=== PATIENT | male | born 1970 | race African-American/Black ===

== ENCOUNTER 2017-01-05 19:50 | Inpatient (IN) | payer OTHER ==
[2017-01-05 20:32] VITALS: BMI 20.5
--- NOTE | 2017-01-05 20:43 | HP ---
CIWA Score - CIWA Score Nausea/Vomitin-Mild Nausea/No Vomiting Muscle Tremors: 4-Moderate,w/Arms Extend Anxiety: 4-Mod. Anxious/Guarded Agitation: 4-Moderately Restless Paroxysmal Sweats: 3 Orientation: 0-Oriented Tacttile Disturbances: 3-Moderate Itch/Numb/Burn Auditory Disturbances: 0-None Visual Disturbances: 0-None Headache: 3-Moderate CIWA-Ar Total Score: 22 Admission ROS BHS - HPI Chief Complaint: WITHDRAWAL SX'S. SEEKING SETOX TXMENT Allergies/Adverse Reactions: Allergies Allergy/AdvReac Type Severity Reaction Status Date / Time No Known Allergies Allergy Verified 01/05/17 20:36 History of Present Illness: 46 Y.O. MALE WITH ALCOHOLISM ADMITTED TO DETOX. U/A POSITVE FOR OXY. CLIENT ADAMANTLY DENIES USE. STATES LAST DETOX YEARS AGO. AGREES TO LOS OF 5 DAYS. Exam Limitations: Other (R EYE BLINDNESS. RETINAL BLASTOMA) - Ebola screening Have you traveled outside of the country in the last 21 days: No (N) Have you had contact with anyone from an Ebola affected area: No Have you been sick,other than usual withdrawal symptoms: No Do you have a fever: No - Review of Systems Constitutional: Chills, Malaise, Night Sweats, Changes in sleep EENT: reports: Dental Problems (MISSING TEETH), Other (R EYE BLINDNESS) Respiratory: reports: No Symptoms reported Cardiac: reports: No Symptoms Reported GI: reports: Nausea : reports: No Symptoms Reported Musculoskeletal: reports: Back Pain Integumentary: reports: Other (R LOWER CHIN SKIN ABCESS X 3 DAYS) Neuro: reports: No Symptoms reported Endocrine: reports: No Symptoms Reported Hematology: reports: No Symptoms Reported Psychiatric: reports: Anxious Other Systems: Reviewed and Negative Patient History - Patient Medical History Hx Anemia: No Hx Asthma: No Hx Chronic Obstructive Pulmonary Disease (COPD): No Hx Cancer: Yes (H/O RETINAL BLASTOMA) Hx Cardiac Disorders: No Hx Congestive Heart Failure: No Hx Hypertension: No Hx Hypercholesterolemia: No Hx Pacemaker: No HX Cerebrovascular Accident: No Hx Seizures: No Hx Dementia: No Hx Diabetes: No Hx Gastrointestinal Disorders: Yes (GERD) Hx Liver Disease: No Hx Genitourinary Disorders: No Hx Sexually Transmitted Disorders: No Hx Renal Disease (ESRD): No Hx Thyroid Disease: No Hx Human Immunodeficiency Virus (HIV): No Hx Hepatitis C: No Hx Depression: Yes (FEELS DEPRESSED. DENIES SI/HI) Hx Suicide Attempt: No Hx Bipolar Disorder: No Hx Schizophrenia: No Other Medical History: DENIES - Patient Surgical History Past Surgical History: Yes Hx Appendectomy: Yes Anesthesia Reaction: No - PPD History Previous Implant?: Yes Documented Results: Negative w/o proof Implanted On Prior R Admission?: No PPD to be Administered?: Yes - Smoking Cessation Smoking history: Current every day smoker Have you smoked in the past 12 months: Yes Aproximately how many cigarettes per day: 10 Cigars Per Day: 4 Hx Chewing Tobacco Use: No Initiated information on smoking cessation: Yes 'Breaking Loose' booklet given: 01/05/17 - Substance & Tx. History Hx Alcohol Use: Yes Hx Substance Use: Yes Substance Use Type: Alcohol Hx Substance Use Treatment: Yes (DOES NOT RECALL) - Substances Abused VODKA Route: Oral Frequency: Daily Amount used: 1 PINT Age of first use: 17 Date of Last Use: 01/05/17 Family Disease History - Family Disease History Family Disease History: Heart Disease: Father ( ALCOHOLISM, [place]), Other: Father, Mother ( ALCOHOLISM, SEIZURES) Admission Physical Exam S - Vital Signs Vital Signs: Vital Signs - 24 hr 01/05/17 20:30 Temperature 98.6 F Pulse Rate 96 H Respiratory 20 Rate Blood Pressure 128/66 - Physical General Appearance: Yes: Anxious HEENTM: Yes: EOMI (ONLY LEFT EYE), Normocephalic, GARRY (ONLY LEFT EYE), Pharynx Normal, Other (R EYE BLINDNESS POOR DENTITION) Respiratory: Yes: Chest Non-Tender, Lungs Clear, Normal Breath Sounds, No Respiratory Distress, No Accessory Muscle Use Neck: Yes: No masses,lesions,Nodules, Supple, Trachea in good position Breast: Yes: Breast Exam Deferred Cardiology: Yes: Regular Rhythm, Regular Rate, S1, S2 Abdominal: Yes: Normal Bowel Sounds, Non Tender, Soft Genitourinary: Yes: Within Normal Limits Back: Yes: Normal Inspection Musculoskeletal: Yes: full range of Motion, Gait Steady Extremities: Yes: Normal Capillary Refill, Normal Range of Motion, Non-Tender, Tremors Neurological: Yes: regulatory affairs intern II-XII NML intact, Fully Oriented, Alert, Motor Strength 5/5 Integumentary: Yes: Warm, Other (SEVERE FACIAL ACNE WITH SCAR TISSUE R CHIN CUTANEOUS SKIN ABCESS NOTED RED SWOLLEN TENDER/ FIRM TO TOUCH) Lymphatic: Yes: Within Normal Limits - Diagnostic (1) Alcohol dependence with uncomplicated withdrawal Current Visit: Yes Status: Chronic (2) Nicotine dependence Current Visit: Yes Status: Chronic Qualifiers: Nicotine product type: cigarettes Substance use status: uncomplicated Qualified Code(s): F17.210 - Nicotine dependence, cigarettes, uncomplicated (3) Cutaneous abscess of face Current Visit: Yes Status: Acute (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
[2017-01-05] MEDS ORDERED: IBUPROFEN 400 MG TABLET (FP) PO PRN (21:03)
[2017-01-05] MEDS ORDERED: MAGNESIUM HYDROX 2400MG/30ML ORAL SUSPENSION 30 ML CUP PO PRN (21:03)
[2017-01-05] MEDS ORDERED: MENTHOL/PHENOL 1 EACH UD MM PRN (21:03)
[2017-01-05] MEDS ORDERED: guaiFENesin/D-METHORPHAN HB 10 ML UNIT-DOSE CUPS PO PRN (21:03)
[2017-01-05] MEDS ORDERED: P-EPHED 60MG/TRIPROLIDI 2.5MG TABLET PO PRN (21:03)
[2017-01-05] MEDS ORDERED: chlordiazePOXIDE HCL 25 MG CAPSULE PO PRN (21:03)
[2017-01-05] MEDS ORDERED: NICOTINE POLACRILEX 2 MG GUM BC PRN (21:03)
[2017-01-05] MEDS ORDERED: MAG HYDROX/AL HYDROX/SIMETH 30 ML UNIT-DOSE CUP PO PRN (21:03)
[2017-01-05] MEDS ORDERED: LOPERAMIDE HCL 2 MG CAPSULE PO PRN (21:03)
[2017-01-05] MEDS ORDERED: MAGNESIUM CITRATE 300 ML BOTTLE PO PRN (21:03)
[2017-01-05] MEDS ORDERED: hydrOXYzine PAMOATE 50 MG CAPSULE (FP) PO PRN (21:03)
[2017-01-05] MEDS: diphenhydrAMINE HCL 50 MG CAPSULE PO PRN (22:53)
[2017-01-05] MEDS: chlordiazePOXIDE HCL 25 MG CAPSULE PO SCH (22:53)
[2017-01-05] MEDS: NICOTINE 14 MG/24 HOURS TOPICAL PATCH TD SCH (22:56)
[2017-01-05] MEDS: THIAMINE HCL 100 MG TABLET (FP) PO SCH (22:57)
[2017-01-06] MEDS: CEPHALEXIN MONOHYDRATE 500 MG CAPSULE (UD) PO SCH ×5 (00:59→22:21)
[2017-01-06] MEDS: chlordiazePOXIDE HCL 25 MG CAPSULE PO SCH ×4 (05:47→22:21)
[2017-01-06] MEDS: PRENATAL VITAMINS W/ FOLIC ACID TABLET (FP) PO SCH (10:11)
[2017-01-06] MEDS: BACITRACIN 0.9 GM PACKET TP SCH ×4 (10:11→22:21)
[2017-01-06] MEDS: NICOTINE 14 MG/24 HOURS TOPICAL PATCH TD SCH (10:12)
--- NOTE | 2017-01-06 10:37 | PN ---
S CIWA - CIWA Score Nausea/Vomitin-Mild Nausea/No Vomiting Muscle Tremors: 4-Moderate,w/Arms Extend Anxiety: 4-Mod. Anxious/Guarded Agitation: 4-Moderately Restless Paroxysmal Sweats: 3 Orientation: 0-Oriented Tacttile Disturbances: 0-None Auditory Disturbances: 0-None Visual Disturbances: 0-None Headache: 0-None Present CIWA-Ar Total Score: 16 BHS Progress Note (SOAP) Subjective: Anxiety,tremors,sweating,interrupted sleep,restless Objective: 01/06/17 10:35 Vital Signs - 8 hr 01/06/17 01/06/17 05:55 09:47 Temperature 98.7 F 98.7 F Pulse Rate 82 89 Respiratory 16 18 Rate Blood Pressure 124/86 118/83 Assessment: 01/06/17 10:36 Withdrawal sx. Plan: Continue detox
[2017-01-06 10:42] LABS: MCH 35.9 pg (25.7-33.7); MCHC 34.1 g/dl (32.0-35.9); MEAN CELL VOLUME 105.3 fl (80-96); MEAN PLT VOLUME 8.9 fl (7.5-11.1); PLATELET COUNT 244 K/MM3 (134-434); RDW 15.8 % (11.9-15.9); WHITE BLOOD COUNT 8.3 K/mm3 (4.0-10.0)
[2017-01-06 10:53] LABS: ALK PHOS 122 U/L (45-117); ANION GAP 9 (8-16); BILIRUBIN,TOTAL 0.2 mg/dL (0.2-1.0); CO2 29 mmol/L (21-32); CREATININE 0.7 mg/dL (0.7-1.3); GLUCOSE,RANDOM 91 mg/dL (74-106); SGOT/AST 14 U/L (15-37); SGPT/ALT 28 U/L (12-78); TOT PROT 5.6 g/dl (6.4-8.2)
[2017-01-06 11:04] LABS: HIV 1 & 2 AB NEGATIVE; HIV 1 AGp24 NEGATIVE
--- NOTE | 2017-01-06 11:06 | EKG ---
Test Reason : Blood Pressure : / mmHG Vent. Rate : 085 BPM Atrial Rate : 085 BPM P-R Int : 136 ms QRS Dur : 082 ms QT Int : 376 ms P-R-T Axes : 072 068 065 degrees QTc Int : 447 ms NORMAL SINUS RHYTHM NORMAL ECG NO PREVIOUS ECGS AVAILABLE Confirmed by AMY BRYAN MD ([id number]) on 01/06/2017 11:06:30 AM Referred By: Confirmed By:AMY BRYAN MD
--- NOTE | 2017-01-06 11:23 | CONSULT ---
[facility] Psychiatric Consult - Data Date of interview: 01/06/17 Admission source: [facility] Identifying data: First admission to [facility] for this 46 y/o AA male seeking detox treatment on 3 for alcohol dependence (Utox is also + for oxycodone) .Patient is singe without children,homeless,unemployed and supported on Public Assistance. Substance Abuse History: - Smoking Cessation. Smoking history: Current every day smoker. Have you smoked in the past 12 months: Yes. Aproximately how many cigarettes per day: 10. Cigars Per Day: 4. Hx Chewing Tobacco Use: No. Initiated information on smoking cessation: Yes. 'Breaking Loose' booklet given : 01/05/17. - Substance & Tx. History. Hx Alcohol Use: Yes. Hx Substance Use : Yes. Substance Use Type: Alcohol. Hx Substance Use Treatment: Yes (DOES NOT RECALL). - Substances Abused. VODKA. Route: Oral. Frequency: Daily. Amount used: 1 PINT. Age of first use: 17. Date of Last Use: 01/05/17. Confirmed by patient in this session. 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 Psychiatric History: Patient denies. Physical/Sexual Abuse/Trauma History: Patient denies. Additional Comment: Urine Drug Screen Results: OXY-Oxycodone.Noted. Mental Status Exam - Mental Status Exam Alert and Oriented to: Time, Place, Person Cognitive Function: Good Patient Appearance: Unkempt, Disheveled Mood: Nervous, Withdrawn Affect: Mood Congruent Patient Behavior: Fatigued, Cooperative Speech Pattern: Clear Voice Loudness: Normal Thought Process: Goal Oriented Thought Disorder: Not Present Hallucinations: Denies Suicidal Ideation: Denies Homicidal Ideation: Denies Insight/Judgement: Poor Sleep: Fair Appetite: Good Muscle strength/Tone: Normal Gait/Station: Normal Psychiatric Findings - Problem List ([place] 1, 2,3) (1) Alcohol dependence with uncomplicated withdrawal Current Visit: Yes Status: Acute (2) Nicotine dependence Current Visit: Yes Status: Acute Qualifiers: Nicotine product type: cigarettes Substance use status: uncomplicated Qualified Code(s): F17.210 - Nicotine dependence, cigarettes, uncomplicated (3) Blind right eye Current Visit: Yes Status: Chronic (4) Cutaneous abscess of face Current Visit: Yes Status: Acute - Initial Treatment Plan Initial Treatment Plan: Psychoeducation.Detoxification.Observation.
[2017-01-06] MEDS ORDERED: INFLUENZA VACCINE 45 MCG/0.5 ML (MDV 16-17) IM ONE (12:00)
[2017-01-06] MEDS: diphenhydrAMINE HCL 50 MG CAPSULE PO PRN (22:21)
[2017-01-06] MEDS: THIAMINE HCL 100 MG TABLET (FP) PO SCH (22:25)
[2017-01-07] MEDS: chlordiazePOXIDE HCL 25 MG CAPSULE PO SCH ×3 (05:28→16:57)
[2017-01-07] MEDS: PRENATAL VITAMINS W/ FOLIC ACID TABLET (FP) PO SCH (10:16)
[2017-01-07] MEDS: CEPHALEXIN MONOHYDRATE 500 MG CAPSULE (UD) PO SCH ×4 (10:16→22:20)
[2017-01-07] MEDS: BACITRACIN 0.9 GM PACKET TP SCH ×4 (10:16→22:21)
[2017-01-07] MEDS: NICOTINE 14 MG/24 HOURS TOPICAL PATCH TD SCH (10:17)
--- NOTE | 2017-01-07 14:32 | PN ---
[facility] CIWA - CIWA Score Nausea/Vomitin-No Nausea/No Vomiting Muscle Tremors: 3 Anxiety: 3 Agitation: 4-Moderately Restless Paroxysmal Sweats: 3 Orientation: 0-Oriented Tacttile Disturbances: 0-None Auditory Disturbances: 0-None Visual Disturbances: 0-None Headache: 0-None Present CIWA-Ar Total Score: 13 S Progress Note (SOAP) Subjective: Sweating,interrupted sleep,restless,tremors,anxiety,body aches. Objective: 01/07/17 14:31 Vital Signs - 8 hr 01/07/17 01/07/17 09:45 13:11 Temperature 98.9 F 95.8 F L Pulse Rate 99 H 95 H Respiratory 20 20 Rate Blood Pressure 125/86 120/85 Laboratory Last Values WBC 8.3 K/mm3 (4.0-10.0) 01/06/17 07:00 RBC 3.12 M/mm3 (4.00-5.60) L 01/06/17 07:00 Hgb 11.2 GM/dL (11.7-16.9) L 01/06/17 07:00 Hct 32.8 % (35.4-49) L 01/06/17 07:00 MCV 105.3 fl (80-96) H 01/06/17 07:00 MCHC 34.1 g/dl (32.0-35.9) 01/06/17 07:00 RDW 15.8 % (11.9-15.9) 01/06/17 07:00 Plt Count 244 K/MM3 (134-434) 01/06/17 07:00 MPV 8.9 fl (7.5-11.1) 01/06/17 07:00 Macrocytosis 1+ 01/06/17 07:00 Morphology Comment Slide scanned 01/06/17 07:00 Sodium 142 mmol/L (136-145) 01/06/17 07:00 Potassium 3.8 mmol/L (3.5-5.1) 01/06/17 07:00 Chloride 104 mmol/L (98-107) 01/06/17 07:00 Carbon Dioxide 29 mmol/L (21-32) 01/06/17 07:00 Anion Gap 9 (8-16) 01/06/17 07:00 BUN 13 mg/dL (7-18) 01/06/17 07:00 Creatinine 0.7 mg/dL (0.7-1.3) 01/06/17 07:00 Creat Clearance w eGFR > 60 (>60) 01/06/17 07:00 Random Glucose 91 mg/dL (74-106) 01/06/17 07:00 Calcium 9.0 mg/dL (8.5-10.1) 01/06/17 07:00 Total Bilirubin 0.2 mg/dL (0.2-1.0) 01/06/17 07:00 AST 14 U/L (15-37) L 01/06/17 07:00 ALT 28 U/L (12-78) 01/06/17 07:00 Alkaline Phosphatase 122 U/L (45-117) H 01/06/17 07:00 Total Protein 5.6 g/dl (6.4-8.2) L 01/06/17 07:00 Albumin 3.0 g/dl (3.4-5.0) L 01/06/17 07:00 RPR Titer Nonreactive (NONREACTIVE) 01/06/17 07:00 Hepatitis C Antibody <0.1 s/co ratio (0.0-0.9) 01/05/17 07:00 HIV 1&2 Antibody Screen Negative 01/06/17 07:00 HIV P24 Antigen Negative 01/06/17 07:00 labs noted Assessment: 01/07/17 14:32 Withdrawal sx. Plan: Continue detox
--- NOTE | 2017-01-07 21:26 | PN ---
S Progress Note Note: received nurse call urine was collected request u/a order continue detox
[2017-01-07] MEDS: THIAMINE HCL 100 MG TABLET (FP) PO SCH (22:20)
[2017-01-07] MEDS: chlordiazePOXIDE 5 MG CAPSULE PO SCH (22:20)
[2017-01-07] MEDS: diphenhydrAMINE HCL 50 MG CAPSULE PO PRN (22:21)
[2017-01-07 23:04] LABS: URINE APPEARANCE CLEAR; URINE BILIRUBIN NEGATIVE (NEGATIVE); URINE BLOOD NEGATIVE (NEGATIVE); URINE COLOR COLORLESS; URINE GLUCOSE (UA) NEGATIVE (NEGATIVE); URINE KETONE NEGATIVE (NEGATIVE); URINE LEUK ESTERASE NEGATIVE (NEGATIVE); URINE NITRITE NEGATIVE (NEGATIVE); URINE PROTEIN NEGATIVE (NEGATIVE); URINE UROBILINOGEN NEGATIVE E.U./dl (0.2-1.0)
[2017-01-08] MEDS: chlordiazePOXIDE 5 MG CAPSULE PO SCH ×3 (05:25→17:46)
--- NOTE | 2017-01-08 10:19 | PN ---
BHS Progress Note (SOAP) Subjective: Sweating,interrupted sleep,restless Objective: 01/08/17 10:18 Vital Signs - 8 hr 01/08/17 01/08/17 01/08/17 03:30 07:01 09:33 Temperature 97.9 F 96.7 F L Pulse Rate 92 H 103 H Respiratory 20 20 18 Rate Blood Pressure 115/86 134/95 Laboratory Last Values WBC 8.3 K/mm3 (4.0-10.0) 01/06/17 07:00 RBC 3.12 M/mm3 (4.00-5.60) L 01/06/17 07:00 Hgb 11.2 GM/dL (11.7-16.9) L 01/06/17 07:00 Hct 32.8 % (35.4-49) L 01/06/17 07:00 MCV 105.3 fl (80-96) H 01/06/17 07:00 MCHC 34.1 g/dl (32.0-35.9) 01/06/17 07:00 RDW 15.8 % (11.9-15.9) 01/06/17 07:00 Plt Count 244 K/MM3 (134-434) 01/06/17 07:00 MPV 8.9 fl (7.5-11.1) 01/06/17 07:00 Macrocytosis 1+ 01/06/17 07:00 Morphology Comment Slide scanned 01/06/17 07:00 Sodium 142 mmol/L (136-145) 01/06/17 07:00 Potassium 3.8 mmol/L (3.5-5.1) 01/06/17 07:00 Chloride 104 mmol/L (98-107) 01/06/17 07:00 Carbon Dioxide 29 mmol/L (21-32) 01/06/17 07:00 Anion Gap 9 (8-16) 01/06/17 07:00 BUN 13 mg/dL (7-18) 01/06/17 07:00 Creatinine 0.7 mg/dL (0.7-1.3) 01/06/17 07:00 Creat Clearance w eGFR > 60 (>60) 01/06/17 07:00 Random Glucose 91 mg/dL (74-106) 01/06/17 07:00 Calcium 9.0 mg/dL (8.5-10.1) 01/06/17 07:00 Total Bilirubin 0.2 mg/dL (0.2-1.0) 01/06/17 07:00 AST 14 U/L (15-37) L 01/06/17 07:00 ALT 28 U/L (12-78) 01/06/17 07:00 Alkaline Phosphatase 122 U/L (45-117) H 01/06/17 07:00 Total Protein 5.6 g/dl (6.4-8.2) L 01/06/17 07:00 Albumin 3.0 g/dl (3.4-5.0) L 01/06/17 07:00 Urine Color Colorless 01/07/17 22:50 Urine Appearance Clear 01/07/17 22:50 Urine pH 7.0 (5.0-8.0) 01/07/17 22:50 Ur Specific [place] 1.006 (1.001-1.035) 01/07/17 22:50 Urine Protein Negative (NEGATIVE) 01/07/17 22:50 Urine Glucose (UA) Negative (NEGATIVE) 01/07/17 22:50 Urine Ketones Negative (NEGATIVE) 01/07/17 22:50 Urine Blood Negative (NEGATIVE) 01/07/17 22:50 Urine Nitrite Negative (NEGATIVE) 01/07/17 22:50 Urine Bilirubin Negative (NEGATIVE) 01/07/17 22:50 Urine Urobilinogen Negative E.U./dl (0.2-1.0) 01/07/17 22:50 Ur Leukocyte Esterase Negative (NEGATIVE) 01/07/17 22:50 RPR Titer Nonreactive (NONREACTIVE) 01/06/17 07:00 Hepatitis C Antibody <0.1 s/co ratio (0.0-0.9) 01/05/17 07:00 HIV 1&2 Antibody Screen Negative 01/06/17 07:00 HIV P24 Antigen Negative 01/06/17 07:00 labs noted Assessment: 01/08/17 10:18 Withdrawal sx. Plan: Continue detox
[2017-01-08] MEDS: BACITRACIN 0.9 GM PACKET TP SCH ×4 (10:21→22:10)
[2017-01-08] MEDS: PRENATAL VITAMINS W/ FOLIC ACID TABLET (FP) PO SCH (10:21)
[2017-01-08] MEDS: NICOTINE 14 MG/24 HOURS TOPICAL PATCH TD SCH (10:21)
[2017-01-08] MEDS: CEPHALEXIN MONOHYDRATE 500 MG CAPSULE (UD) PO SCH ×4 (10:21→22:11)
[2017-01-08] MEDS: chlordiazePOXIDE HCL 10 MG CAPSULE PO SCH (22:10)
[2017-01-08] MEDS: diphenhydrAMINE HCL 50 MG CAPSULE PO PRN (22:11)
[2017-01-08] MEDS: ACETAMINOPHEN 325 MG TABLET (FP) PO PRN (22:11)
[2017-01-08] MEDS: THIAMINE HCL 100 MG TABLET (FP) PO SCH (22:37)
[2017-01-09] MEDS: chlordiazePOXIDE HCL 10 MG CAPSULE PO SCH ×3 (05:10→17:50)
[2017-01-09] MEDS: BACITRACIN 0.9 GM PACKET TP SCH ×4 (10:21→22:24)
[2017-01-09] MEDS: NICOTINE 14 MG/24 HOURS TOPICAL PATCH TD SCH (10:21)
[2017-01-09] MEDS: PRENATAL VITAMINS W/ FOLIC ACID TABLET (FP) PO SCH (10:21)
[2017-01-09] MEDS: CEPHALEXIN MONOHYDRATE 500 MG CAPSULE (UD) PO SCH ×4 (10:21→22:26)
[2017-01-09] MEDS: ACETAMINOPHEN 325 MG TABLET (FP) PO PRN (10:22)
--- NOTE | 2017-01-09 11:47 | PN ---
BHS Progress Note (SOAP) Subjective: ANXIETY, SWEATS, FATIGUE. Objective: 01/09/17 11:45 Vital Signs Temperature 96 F L 01/09/17 09:32 Pulse Rate 105 H 01/09/17 09:32 Respiratory Rate 20 01/09/17 09:32 Blood Pressure 120/87 01/09/17 09:32 O2 Sat by Pulse Oximetry (%) Assessment: 01/09/17 11:45 WITHDRAWAL SX Plan: CONTINUE DETOX
[2017-01-09] MEDS: THIAMINE HCL 100 MG TABLET (FP) PO SCH (22:24)
[2017-01-09] MEDS: diphenhydrAMINE HCL 50 MG CAPSULE PO PRN (22:25)
[2017-01-10 09:41] VITALS: BP 140/95; PULSE 102; TEMP 96
--- NOTE | 2017-01-10 10:19 | DS ---
[facility] Detox Discharge Summary Admission Date: 01/05/17 Discharge Date: 01/10/17 - History Present History: Alcohol Dependence Pertinent Past History: Blind Left Eye (Cancer) GERD - Physical Exam Results Vital Signs: Vital Signs Temperature 96.0 F L 01/10/17 09:40 Pulse Rate 102 H 01/10/17 09:40 Respiratory Rate 18 01/10/17 09:40 Blood Pressure 140/95 01/10/17 09:40 O2 Sat by Pulse Oximetry (%) Laboratory Tests 01/05/17 01/06/17 01/06/17 07:00 07:00 07:00 WBC 8.3 RBC 3.12 L Hgb 11.2 L Hct 32.8 L MCV 105.3 H MCHC 34.1 RDW 15.8 Plt Count 244 MPV 8.9 Macrocytosis 1+ Morphology Comment Slide scanned Sodium 142 Potassium 3.8 Chloride 104 Carbon Dioxide 29 Anion Gap 9 BUN 13 Creatinine 0.7 Creat Clearance w eGFR > 60 Random Glucose 91 Calcium 9.0 Total Bilirubin 0.2 AST 14 L ALT 28 Alkaline Phosphatase 122 H Total Protein 5.6 L Albumin 3.0 L Urine Color Urine Appearance Urine pH Ur Specific [place] Urine Protein Urine Glucose (UA) Urine Ketones Urine Blood Urine Nitrite Urine Bilirubin Urine Urobilinogen Ur Leukocyte Esterase RPR Titer Hepatitis C Antibody <0.1 HIV 1&2 Antibody Screen HIV P24 Antigen 01/06/17 01/06/17 01/07/17 07:00 07:00 22:50 WBC RBC Hgb Hct MCV MCHC RDW Plt Count MPV Macrocytosis Morphology Comment Sodium Potassium Chloride Carbon Dioxide Anion Gap BUN Creatinine Creat Clearance w eGFR Random Glucose Calcium Total Bilirubin AST ALT Alkaline Phosphatase Total Protein Albumin Urine Color Colorless Urine Appearance Clear Urine pH 7.0 Ur Specific [place] 1.006 Urine Protein Negative Urine Glucose (UA) Negative Urine Ketones Negative Urine Blood Negative Urine Nitrite Negative Urine Bilirubin Negative Urine Urobilinogen Negative Ur Leukocyte Esterase Negative RPR Titer Nonreactive Hepatitis C Antibody HIV 1&2 Antibody Screen Negative HIV P24 Antigen Negative labs noted. repreat HR 88 Pertinent Admission Physical Exam Findings: withdrawal symptoms - Treatment Hospital Course: Detox Protocol Followed, Detoxed Safely, Responded well, Discharged Condition Good, Rehab Referral Accepted - Medication Discharge Medications: Ambulatory Orders Esomeprazole Magnesium [Nexium 24Hr] 20 mg PO PRN PRN 01/05/17 - Diagnosis (1) Alcohol dependence with uncomplicated withdrawal Current Visit: Yes Status: Acute (2) Cutaneous abscess of face Current Visit: Yes Status: Acute (3) Nicotine dependence Current Visit: Yes Status: Acute Qualifiers: Nicotine product type: cigarettes Substance use status: uncomplicated Qualified Code(s): F17.210 - Nicotine dependence, cigarettes, uncomplicated (4) Blind right eye Current Visit: Yes Status: Chronic - AMA Did Patient Leave Against Medical Advice: No
[2017-01-10] MEDS: NICOTINE 14 MG/24 HOURS TOPICAL PATCH TD SCH (10:52)
[2017-01-10] MEDS: BACITRACIN 0.9 GM PACKET TP SCH (10:52)
[2017-01-10] MEDS: CEPHALEXIN MONOHYDRATE 500 MG CAPSULE (UD) PO SCH (10:52)
[2017-01-10] MEDS: PRENATAL VITAMINS W/ FOLIC ACID TABLET (FP) PO SCH (10:52)
== END 2017-01-10 12:45 | disposition home or self-care (01) | DRG 775 ==
LOC: YASAS 19:50 → Y3N 21:40
PROVIDERS: ADMIT Internal Medicine; ATTEND Internal Medicine
PROC: HZ2ZZZZ Detoxification Services for Substance Abuse Treatment (ICD-10-PCS; principal; 2017-01-10)
DX: F10.230 Alcohol dependence with withdrawal, uncomplicated (principal); F17.210 Nicotine dependence, cigarettes, uncomplicated; L02.01 Cutaneous abscess of face; H54.41 Blindness, right eye, normal vision left eye; Z85.840 Personal history of malignant neoplasm of eye; Z59.0 Homelessness
CPT/HCPCS: 36415; 80053; 81003; 85027; 86593; 87389; 93005; 93010